=== PATIENT | female | born 1995 | race Caucasian/White ===

== ENCOUNTER 2016-09-09 11:39 | Emergency (ER) | payer OTHER ==
[~2016-09-09] VITALS: Ht 162.6 cm; Wt 68.2 kg
[2016-09-09 11:42] VITALS: TEMP 37.2; Ht 162.6 cm; Wt 68.2 kg
[2016-09-09] MEDS ORDERED: BCPILLS PO (12:25)
[2016-09-09] MEDS ORDERED: ONDANSETRON INJ 2 MG/ML 2 ML VIAL IV STA (12:55)
[2016-09-09] MEDS ORDERED: SODIUM CHLORIDE 0.9% 1000ML 1,000 ML IV STA (12:55)
[2016-09-09] MEDS ORDERED: MoRPHine SULFATE 4 MG/ML 1 ML CARP\\VIAL IV PRN (13:00)
[2016-09-09 13:06] LABS: BASO % 0.3 %; BASO ABS # 0.02 K/uL (0-0.2); COMPLETE YES; EOS % 1.4 %; HEMATOCRIT 41.7 % (37-47); IG% 0.1 %; LYMPH % 37.7 %; MEAN CELL VOLUME 83.7 fL (80-100); MEAN CORPUSCULAR HEMOGLOBIN 28.9 pg (25-34); MEAN CORPUSCULAR HGB CONC 34.5 g/dl (32-36); MEAN PLATELET VOLUME 9.2 fL (7.4-10.4); MONO % 4.9 %; NEUT % 55.6 %; PLATELET COUNT 237 K/uL (130-400); RED BLOOD COUNT 4.98 M/uL (4.2-5.4)
[2016-09-09 13:12] LABS: ALT/SGPT 26 U/L (12-78); AST/SGOT 18 U/L (15-37); BLOOD UREA NITROGEN 8 mg/dl (7-18); CALCIUM 9.7 mg/dl (8.5-10.1); CARBON DIOXIDE 28 mmol/L (21-32); CHLORIDE 106 mmol/L (98-107); CREATININE 0.93 mg/dl (0.60-1.20); GLUCOSE 93 mg/dl (70-99); POTASSIUM 3.5 mmol/L (3.5-5.1); SODIUM 142 mmol/L (136-145)
[2016-09-09 13:14] LABS: ALKALINE PHOSPHATASE 65 U/L (45-117)
[2016-09-09 13:22] LABS: PARTIAL THROMBOPLASTIN RATIO 1.1; PROTHROMBIN TIME (PATIENT) 10.5 SECONDS (9.0-12.0)
[2016-09-09 13:26] LABS: URINE APPEARANCE CLEAR (CLEAR); URINE BILIRUBIN NEG (NEG); URINE COLOR YELLOW; URINE NITRITE NEG (NEG); URINE SPECIFIC GRAVITY 1.003 (1.000-1.030); UROBILINOGEN NEG (NEG)
[2016-09-09 13:30] LABS: MANUAL MICROSCOPIC REQUIRED? NO; REVIEW REQ? NO
--- NOTE | 2016-09-09 13:35 | DIAGNOSTIC IMAGING REPORT ---
ABDOMEN 2VIEW W/PA CHEST RTN CLINICAL HISTORY: ABDOMINAL PAIN/GI pain. Nausea. COMPARISON STUDY: No previous studies for comparison. FINDINGS: The soft tissues, psoas shadows, renal outlines and intestinal gas pattern appear normal. There is no evidence for bowel obstruction. There is no evidence for free intraperitoneal air. No abnormal abdominal calcifications are seen. A frontal view of the chest was performed and is unremarkable. There are several nonspecific calcifications left lateral soft tissue pelvis. IMPRESSION: 1. Negative chest. 2. Several calcifications left lateral soft tissue pelvis. Although most likely vascular, possibly of distal ureteral calcifications are not excluded Electronically signed by: Jung Castillo M.D. 09/09/2016 1:34 PM Dictated Date/Time: 09/09/2016 1:32 PM
[2016-09-09 13:40] LABS: PREG INTERNAL NEGATIVE QC NEG CLEAR BACKGROUND; PREG INTERNAL POSITIVE QC POS CONTROL LINE
[2016-09-09 15:24] VITALS: BP 108/66; PULSE 82; O2SAT 99
--- NOTE | 2016-09-10 09:58 | EMERGENCY ROOM VISIT NOTE ---
ED Visit Note First contact with patient: 12:26 Chief Complaint: Abdominal pain. History of Present Illness: Ms. Ruiz is a 21 year-old white female who ambulates into the ED complaining of left mid sided abdominal pain. Historically patient reports remote history of constipation. Patient reports a acute onset of mid left sided abdominal pain that started approximately 4 days ago. Since that time the pain has been constant. She describes the pain as a stabbing sensation. The pain is nonradiating. She rates her discomfort 8/10. The pain worsens with moving her bowels, eating, ambulation and palpation. She has not identified any alleviating factors related to the pain. She reports she took one dose of Pepto-Bismol shortly after the onset of pain, 1 dose of ibuprofen 2 days ago and a dose of stool softener today without relief of her discomfort. Associated with her pain she reports on the first day she had 3 episodes of diarrhea and when she wiped her rectum there was bright red blood on the toilet tissue but not in the tank. Since that time diarrhea has ceased and she is passing formed stool, she has been nauseated and had one episode of vomiting the first day of her symptoms, she has been having chills, painful bowel movements and decreased appetite. Patient denies sweats, skin eruptions, skin color changes, upper respiratory tract symptoms, shortness of breath, chest pain, constipation, black/tarry stools, urinary symptoms, hematuria, vaginal bleeding, vaginal discharge, back/ flank pain. Review of Systems: As noted above in history of present illness. All body systems were reviewed and found to be negative as noted above. Past Medical History: As previously noted, status post wisdom teeth extraction, unspecified thumb surgery and dental surgery. Current Medications: control. Allergies to Medications: Patient denies. Social History: Patient is not employed; she feels safe in her home environment ; she denies tobacco use and admits to alcohol use. Physical Examination: Vital Signs: Date Time Temp Pulse Resp B/P Pulse Ox O2 Delivery O2 Flow Rate FiO2 09/09/16 15:24 82 16 108/66 99 Room Air 09/09/16 13:38 88 16 111/68 100 Room Air 09/09/16 11:42 37.2 77 17 104/75 98 Room Air GENERAL: 21-year-old female in mild to moderate distress due to pain, nontoxic- appearing, afebrile and hemodynamically stable. NEUROLOGICAL: Awake, alert and oriented to person, place and time. Answering questions appropriately and following commands. Normal gait. Good hand eye coordination. SKIN: Warm, dry and pink. No soft tissue eruptions or trauma noted. HEENT: Atraumatic and normocephalic. PERRLA. Sclera white and conjunctiva pink. Oral cavity moist and pink. Pharynx is nonerythematous or edematous. Speech normal. No lymphadenopathy. Trachea midline. No jugular venous distention. BACK: No tenderness over the bony spine. No CVA tenderness. THORAX: Lungs sounds are clear to auscultation and equal bilaterally with symmetrical chest wall. No wheezing, rales or rhonchi. No crepitus, tenderness , subcutaneous air or deformities noted. HEART: Regular rate and rhythm. No gallops, rubs or murmurs are appreciated. ABDOMEN: Flat and soft with moderate tenderness in the mid left abdomen. Decreased bowel sounds in all quadrants. No guarding, rigidity or organomegaly. RECTUM: No external tags or hemorrhoids. Normal rectal tone. No palpable fecal impaction. No palpable internal rectal masses. Heme-negative stools. EXTREMITIES: Moves all extremities well on command and with purpose. All distal neurovascular statuses are intact and equal bilaterally. ED Course: Patient is assessed as noted above. Laboratory Testing: Test 09/09/16 12:00 09/09/16 12:20 Range/Units White Blood Count 6.90 4.8-10.8 K/uL Red Blood Count 4.98 4.2-5.4 M/uL Hemoglobin 14.4 12.0-16.0 g/dL Hematocrit 41.7 37-47 % Mean Corpuscular Volume 83.7 80-100 fL Mean Corpuscular Hemoglobin 28.9 25-34 pg Mean Corpuscular Hemoglobin Concent 34.5 32-36 g/dl Platelet Count 237 130-400 K/uL Mean Platelet Volume 9.2 7.4-10.4 fL Neutrophils (%) (Auto) 55.6 % Lymphocytes (%) (Auto) 37.7 % Monocytes (%) (Auto) 4.9 % Eosinophils (%) (Auto) 1.4 % Basophils (%) (Auto) 0.3 % Neutrophils # (Auto) 3.83 1.4-6.5 K/uL Lymphocytes # (Auto) 2.60 1.2-3.4 K/uL Monocytes # (Auto) 0.34 0.11-0.59 K/uL Eosinophils # (Auto) 0.10 0-0.5 K/uL Basophils # (Auto) 0.02 0-0.2 K/uL RDW Standard Deviation 35.9 36.4-46.3 fL RDW Coefficient of Variation 11.7 11.5-14.5 % Immature Granulocyte % (Auto) 0.1 % Immature Granulocyte # (Auto) 0.01 0.00-0.02 K/uL Prothrombin Time 10.5 9.0-12.0 SECONDS Prothromb Time International Ratio 1.0 0.9-1.1 Activated Partial Thromboplast Time 27.6 21.0-31.0 SECONDS Partial Thromboplastin Ratio 1.1 Sodium Level 142 136-145 mmol/L Potassium Level 3.5 3.5-5.1 mmol/L Chloride Level 106 98-107 mmol/L Carbon Dioxide Level 28 21-32 mmol/L Anion Gap 8.0 3-11 mmol/L Blood Urea Nitrogen 8 7-18 mg/dl Creatinine 0.93 0.60-1.20 mg/dl Est Creatinine Clear Calc Drug Dose 90.8 ml/min Estimated GFR () 101.8 Estimated GFR (Non- 87.9 BUN/Creatinine Ratio 9.0 10-20 Random Glucose 93 70-99 mg/dl Calcium Level 9.7 8.5-10.1 mg/dl Total Bilirubin 0.5 0.2-1 mg/dl Direct Bilirubin < 0.1 0-0.2 mg/dl Aspartate Amino Transf (AST/SGOT) 18 15-37 U/L Alanine Aminotransferase (ALT/SGPT) 26 12-78 U/L Alkaline Phosphatase 65 45-117 U/L Total Protein 8.0 6.4-8.2 gm/dl Albumin 4.3 3.4-5.0 gm/dl Lipase 235 73-393 U/L Human Chorionic Gonadotropin, Qual NEG NEG Urine Color YELLOW Urine Appearance CLEAR CLEAR Urine pH 5.0 4.5-7.5 Urine Specific [place] 1.003 1.000-1.030 Urine Protein NEG NEG Urine Glucose (UA) NEG NEG Urine Ketones NEG NEG Urine Occult Blood NEG NEG Urine Nitrite NEG NEG Urine Bilirubin NEG NEG Urine Urobilinogen NEG NEG Urine Leukocyte Esterase TRACE NEG Urine WBC (Auto) 1-5 0-5 /hpf Urine RBC (Auto) 0-4 0-4 /hpf Urine Hyaline Casts (Auto) 0 0-5 /lpf Urine Epithelial Cells (Auto) 10-20 0-5 /lpf Urine Bacteria (Auto) NEG NEG Acute Abdominal X-Ray Series: Was read by myself and the radiologist and shows a normal PA chest with no signs of infiltrates, effusions or pneumothorax. Normal heart silhouette. Abdominal component shows a nonspecific bowel gas pattern with no evidence of bowel obstruction or free air. I did note that there've been increase in fecal material. Radiologist noted several calcifications in the left lateral soft-tissue pelvis of questionable etiology. Patient was hydrated with normal saline, she received 4 mg of morphine IV and 4 mg of Zofran IV for her symptoms. Patient was reassessed multiple times during her stay in the emergency department. Patient's case was reviewed with Dr. Case; we agreed on diagnostic approach , treatment, disposition and plan. Clinical Impression: Left upper quadrant abdominal pain. Constipation. Decision-Making: Initially my differential diagnosis I considered bowel obstruction, colitis, splenomegaly, constipation, perforated viscus, pancreatitis, pyelonephritis and other causes. Disposition: Patient discharged home in stable condition; prior to departure she was reassessed and subjectively reported she was feeling much better and she was pain-free. Additionally she denies any episodes of vomiting or diarrhea the ED. Plan: Patient was encouraged to alternate ibuprofen and acetaminophen every 3 hours as needed for pain. Patient was encouraged to use [id number] Colace 2 times a day for 7 days and [id number] MiraLAX 1 dose for 7 days. Patient was current improve her diet with increased fruits, vegetables, dietary fiber and possibly prune/apple juice. Patient was encouraged to follow-up with gastroenterology or family physician for recheck because of her plain and her earlier bloody stools. Patient was encouraged return the ED for worsening/uncontrolled pain, worsening bloody stools, fevers, vomiting or any new/concerning symptoms.
== END 2016-09-09 15:50 | disposition home or self-care (01) ==
LOC: C.EDB 11:42
DX: R10.12 Left upper quadrant pain (principal); K59.00 Constipation, unspecified